=== PATIENT | male | born 1965 | race Caucasian/White ===

== ENCOUNTER 2017-01-17 13:20 | Emergency (ER) | payer BC ==
[~2017-01-17 13:20] MED LIST: PROTONIX20 M2 PO; ZANTAC150 M1 PO
[2017-01-17] MEDS ORDERED: IBUPROFEN800 M1 PO (13:47)
[2017-01-17] MEDS ORDERED: VALTREX1000 M1 PO (13:47)
[2017-01-17] MEDS ORDERED: PERCOCET 5-3251 EACH PO (13:53)
[2017-01-17] MEDS ORDERED: TRIFLURIDINE OP (13:53)
== END 2017-01-17 14:25 ==
LOC: EDMED 13:20
DX: B02.30 Zoster ocular disease, unspecified (principal)